=== PATIENT | male | born 1990 | race Caucasian/White ===

== ENCOUNTER 2017-02-02 11:51 | Emergency (ER) | payer MEDICAID ==
--- NOTE | 2017-02-02 12:16 | ER Document Report ---
ED Medical Screen (RME) - General Chief Complaint: Headache Stated Complaint: HEADACHE Time Seen by Provider: 02/02/17 12:08 Mode of Arrival: Ambulatory Information source: Patient Notes: This 26-year-old male patient comes emergency room complaining of a complex set of symptoms which involves getting dizzy, feeling hot, sweating, and off- balance. He would lose feeling in his hands and feet, it would move up the arms and legs and then he will black out for up to 5 minutes. When he wakes up his arms and legs do not want to move. He has had 2 of these episodes in the past 2 weeks, both occurred while sitting down. One was while riding in a truck on the way back to his work area, the other occurred today while sitting down outdoors with friends "just chilling". He has had headaches in the back of his head and neck for the last 2 weeks. He reports a similar problem when he was younger, and had extensive workups and testing when he was 18 years old. No etiology was found for the symptoms, and they just went away. Brief exam shows the patient is quite tender in the posterior cervical muscles and where the muscles insert on the nuchal ridge, right being much more tender than the left. I have greeted and performed a rapid initial assessment of this patient. A comprehensive ED assessment and evaluation of the patient, analysis of test results and completion of the medical decision making process will be conducted by additional ED providers. TRAVEL OUTSIDE OF THE [place] IN LAST 30 DAYS: No - Related Data Allergies/Adverse Reactions: ibuprofen Adverse Reaction (Verified 02/02/17 12:05) Past Medical History Renal/ Medical History: Denies: Hx Peritoneal Dialysis Past Surgical History: Reports: Hx Tonsillectomy - Immunizations Immunizations up to date: Yes Hx Diphtheria, Pertussis, Tetanus Vaccination: No Physical Exam - Vital signs Vitals: Temp Pulse Resp BP Pulse Ox 98.5 F 87 12 130/77 H 98 02/02/17 11:53 02/02/17 11:53 02/02/17 11:53 02/02/17 11:53 02/02/17 11:53 Course - Vital Signs Vital signs: Temp Pulse Resp BP Pulse Ox 98.5 F 87 12 130/77 H 98 02/02/17 11:53 02/02/17 11:53 02/02/17 11:53 02/02/17 11:53 02/02/17 11:53
[2017-02-02 13:43] LABS: ABSOLUTE BASOPHILS # (AUTO) 0.1 10^3/uL (0.0-0.2); ABSOLUTE EOSINOPHILS # (AUTO) 0.1 10^3/uL (0.0-0.6); ABSOLUTE NEUT (AUTO) 9.9 10^3/uL (1.7-8.2); BASOPHILS % (AUTO) 0.5 % (0-2); EOSINOPHILS % (AUTO) 0.6 % (0-6); HEMATOCRIT 36.8 % (37.9-51.0); HGB HCT DIFFERENCE -0.8; LYMPHOCYTES % (AUTO) 8.3 % (13-45); MEAN CORPUSCULAR HEMOGLOBIN 21.2 pg (27.0-33.4); MEAN CORPUSCULAR HGB CONC 32.5 g/dL (32.0-36.0); MEAN CORPUSCULAR VOLUME 65 fl (80-97); MONOCYTES % (AUTO) 8.1 % (3-13); RED BLOOD COUNT 5.66 10^6/uL (4.35-5.55); RED CELL DISTRIBUTION WIDTH 15.6 % (11.5-14.0); SEGMENTED NEUTROPHILS % (AUTO) 82.5 % (42-78)
--- NOTE | 2017-02-02 13:49 | ER Document Report ---
ED General - General Chief Complaint: Headache Stated Complaint: HEADACHE Time Seen by Provider: 02/02/17 12:08 Mode of Arrival: Ambulatory Information source: Patient Notes: This is a 26 year old male who presents for evaluation of headache and syncope. Patient reports posterior head and neck pain for the past 2 weeks, and overall just not feeling well, with subjective fevers and chills. About 10 days ago he states he had a syncopal episode. He was the passenger in a vehicle at the time, and states that he suddenly felt hot, got diaphoretic and nauseated, had ringing in his ears and numbness to bilateral hands and feet. He leaned forward onto the dash and "passed out" for a few minutes. No seizure activity reported, but he did have urinary incontinence. Awoke and friend drove him home. Today, he had a similar episode at a friend's house. He was seated outside, just "hanging out", and began feeling hot and nauseated. He could tell that he may pass out, so he laid on the ground. He thinks he may have passed out for a few seconds. No urinary incontinence this time, no seizure activity. His family drove him straight to the ER. Of note, he was noted to vomit here in the ER during IV placement. Currently he states he is feeling better. Pt traveled to [place] last month for work. He has not recently been out of the country. Denies rashes or tick bites. No known sick contacts. Of note, patient states he had an extensive workup for syncope when he was a teenager, around age 18, as he was having similar spells then. He states he had CT, MRI, sleep studies and no etiology was found. TRAVEL OUTSIDE OF THE [place] IN LAST 30 DAYS: No - Related Data Allergies/Adverse Reactions: ibuprofen Adverse Reaction (Verified 02/02/17 12:05) Past Medical History - General Information source: Patient - Social History Smoking Status: Current Every Day Smoker Family History: None Patient has suicidal ideation: No Patient has homicidal ideation: No Renal/ Medical History: Denies: Hx Peritoneal Dialysis Past Surgical History: Reports: Hx Tonsillectomy - Immunizations Immunizations up to date: Yes Hx Diphtheria, Pertussis, Tetanus Vaccination: No Review of Systems - Review of Systems Constitutional: No symptoms reported EENT: No symptoms reported Cardiovascular: See HPI. denies: Chest pain, Palpitations, Heart racing, Orthopnea, Dyspnea, Edema Respiratory: No symptoms reported. denies: Cough, Hurts to breathe, Short of breath Gastrointestinal: See HPI. denies: Abdominal pain Musculoskeletal: No symptoms reported Skin: No symptoms reported Hematologic/Lymphatic: No symptoms reported Neurological/Psychological: See HPI, Headaches Physical Exam - Vital signs Vitals: Temp Pulse Resp BP Pulse Ox 98.5 F 87 12 130/77 H 98 02/02/17 11:53 02/02/17 11:53 02/02/17 11:53 02/02/17 11:53 02/02/17 11:53 - Notes Notes: PHYSICAL EXAMINATION: GENERAL: Well-appearing, alert and conversant, well-nourished and in no acute distress. HEAD: Atraumatic, normocephalic. EYES: Pupils equal round and reactive to light, extraocular movements intact, sclera anicteric, conjunctiva are normal. ENT: nares patent, oropharynx clear without exudates. Moist mucous membranes. NECK: Normal range of motion, supple without lymphadenopathy LUNGS: Breath sounds clear to auscultation bilaterally and equal. No wheezes rales or rhonchi. HEART: Regular rate and rhythm without murmurs ABDOMEN: Soft, nontender, normoactive bowel sounds. No guarding, no rebound. No masses appreciated. EXTREMITIES: Normal range of motion, no pitting or edema. No cyanosis. NEUROLOGICAL: Cranial nerves grossly intact. Normal speech. Motor strength +5/ 5 bilateral upper and lower extremities, sensation intact. PSYCH: Normal mood, normal affect. SKIN: Warm, Dry, normal turgor, no rashes or lesions noted. Course - Re-evaluation Re-evalutation: 02/02/17 15:39 Pt has remained hemodynamically stable in the ER. His workup has been reassuring, to include negative CT head with and without contrast and reassuring labwork. At this point I suspect vasovagal syncope, as patient always has a prodrome of nausea and lightheadedness, no chest pain or palpitations, and pateint appears to have sensitive vagal response given his reaction to IV stick here in ER today. Seizure episodes also a possibility, but no tonic clonic symptoms witnessed and pt has warning prior to episodes. Will provide neurology followup information as well as encourage pt to follow up with a PCP or the community care clinic. Pt encouraged to rest in air conditioned environment and drink plenty of fluids. Return precautions discussed. Patient and family comfortable with plan. - Vital Signs Vital signs: Temp Pulse Resp BP Pulse Ox 98.5 F 62 12 125/63 99 02/02/17 11:53 02/02/17 13:41 02/02/17 14:13 02/02/17 14:13 02/02/17 14:13 - Laboratory Result Diagrams: 02/02/17 13:20 02/02/17 13:20 Laboratory results interpreted by me: 02/02/17 02/02/17 02/02/17 13:20 13:20 14:11 WBC 12.0 H RBC 5.66 H Hgb 12.0 L Hct 36.8 L MCV 65 L MCH 21.2 L RDW 15.6 H Seg Neutrophils % 82.5 H Lymphocytes % 8.3 L Absolute Neutrophils 9.9 H Total Bilirubin 1.5 H Urine Protein 30 H - Diagnostic Test Radiology reviewed: Reports reviewed - CT head with and without contrast: no acute abnormality Discharge - Discharge Clinical Impression: Syncope Qualifiers: Syncope type: unspecified Qualified Code(s): R55 - Syncope and collapse Cephalgia Qualifiers: Headache type: unspecified Headache chronicity pattern: unspecified pattern Intractability: not intractable Qualified Code(s): R51 - Headache Condition: Stable Disposition: HOME, SELF-CARE Additional Instructions: Syncopal Episode Syncope (fainting or near-fainting) can occur from many different health problems. Or it can be a simple fainting spell requiring no treatment. It is safe for you to go home, but further evaluation will likely be necessary. Your work-up may include tests for internal bleeding, heart disease, medication problems, or near-strokes. Tests are not always required, however, depending on the nature of your problem. The warning signs of an impending faint include: dizziness, lightheadedness , nausea, hot flashes, tingling, and weakness. If this happens, lay down and put your feet up, then wait until all of these symptoms have passed before standing up again. If these episodes become recurrent, or if you develop chest pain, heart palpitations, mental confusion, blurred vision, or headache, then you should call the physician, or go to the emergency room. Vasovagal Symptoms Your symptoms seem to be due to a fall in blood pressure, caused by the interaction of your nervous system with your circulatory system. This can result in abnormally slow pulse rate, faintness, abnormal sensations, low blood pressure, difficulty with vision, or fainting (syncope). Vasovagal symptoms may be brought on by emotional distress, pain, dehydration, bleeding, or medication effects. Often, no cause can be identified. Your exam has revealed no signs of a serious problem. Usually, no further tests are required. However, if further workup has been recommended it's important that you follow up as instructed. Should you feel lightheaded or "about to faint," you should sit or lie down as quickly as possible. The episode will usually pass. Recurring symptoms will require further evaluation to determine the cause. Call the physician if you develop severe prolonged dizziness, headache, chest pain, shortness of breath, or other new symptoms. As instructed, rest in a cool, airconditioned environment next 24 hours. Drink plenty of fluids. Follow up with PCP and neurology as instructed. Return to the ER for fever greater than 100.4, chest pain, irregular heart beat or palpitations, or any worsening symptoms or concerns. Forms: Return to Work Referrals: MAXIMUS BROWNLEE MD [ACTIVE STAFF] - Follow up in 3-5 days
[2017-02-02 14:01] LABS: ALANINE AMINOTRANSFERASE 32 U/L (21-72); ALBUMIN 4.8 g/dL (3.5-5.0); ALKALINE PHOSPHATASE 67 U/L (38-126); ANION GAP 14 (5-19); ASPARTATE AMINO TRANSFERASE 24 U/L (17-59); BILIRUBIN,DIRECT 0.2 mg/dL (0.0-0.4); BILIRUBIN,TOTAL 1.5 mg/dL (0.2-1.3); BLOOD UREA NITROGEN 17 mg/dL (7-20); CALCIUM 9.6 mg/dL (8.4-10.2); CARBON DIOXIDE 25 mmol/L (22-30); CHLORIDE 100 mmol/L (98-107); CREATININE RESULT 0.81 mg/dL (0.52-1.25); GLUCOSE 89 mg/dL (75-110); POTASSIUM 4.7 mmol/L (3.6-5.0); SODIUM 138.9 mmol/L (137-145); TOTAL PROTEIN 7.5 g/dL (6.3-8.2)
[2017-02-02 14:13] LABS: CREATINE KINASE MB 0.48 ng/mL (<4.55)
[2017-02-02 14:17] LABS: TROPONIN I < 0.012 ng/mL
--- NOTE | 2017-02-02 14:17 | RADIOLOGY REPORT (SQ) ---
EXAM DESCRIPTION: CT HEAD COMBO COMPLETED DATE/TIME: 02/02/2017 2:07 pm REASON FOR STUDY: headache, vomiting, syncope COMPARISON: None. TECHNIQUE: Axial images acquired through the brain without and with intravenous contrast. Images re viewed with bone, brain and subdural windows. Images stored on PACS. All CT scanners at this facility use dose modulation, iterative reconstruction, and/or weight based d osing when appropriate to reduce radiation dose to as low as reasonably achievable (ALARA). [facility]: Dose Right [facility]: CareDose [facility]: Dose Right [facility]: Teradose 4D [facility]: [employer] CONTRAST TYPE AND DOSE: 50mL Isovue 370- low osmolar. RENAL FUNCTION: None required. The patient is less than 50 years old. RADIATION DOSE: 129.22 mGy. LIMITATIONS: None. FINDINGS: VENTRICLES: Normal size and contour. CEREBRUM: No masses. No hemorrhage. No midline shift. Normal winston/white matter differentiation. No ev idence for acute infarction. No enhancing lesions. CEREBELLUM: No masses. No hemorrhage. No alteration of density. No evidence for acute infarction. No enhancing lesions. EXTRA-AXIAL SPACES: No fluid collections. No enhancing lesions. ORBITS AND GLOBE: No intra- or extraconal masses. Normal contour of globe without masses. CALVARIUM: No fracture. PARANASAL SINUSES: No fluid or mucosal thickening. SOFT TISSUES: No mass or hematoma. OTHER: No other significant finding. IMPRESSION: NORMAL BRAIN CT WITHOUT AND WITH CONTRAST. TECHNICAL DOCUMENTATION: JOB ID: [id number] Quality ID # [id number]: Final reports with documentation of one or more dose reduction techniques (e.g., Au tomated exposure control, adjustment of the mA and/or kV according to patient size, use of iterative reconstruction technique) 2010 [employer]- All Rights Reserved
[2017-02-02 14:51] LABS: APPEARANCE,URINE SLIGHTLY-CLOUDY; BILIRUBIN,URINE NEGATIVE (NEGATIVE); GLUCOSE, URINE NEGATIVE (NEGATIVE); KETONES,URINE NEGATIVE (NEGATIVE); LEUKOCYTE ESTERASE,URINE NEGATIVE (NEGATIVE); NITRITE,URINE NEGATIVE (NEGATIVE); PROTEIN,URINE 30 mg/dL (NEGATIVE); UROBILINOGEN,URINE NEGATIVE mg/dL (<2.0)
[2017-02-02] MEDS ORDERED: NORMAL SALINE 1000 ML 1,000 ML IV ONE (14:52)
[2017-02-02 15:13] LABS: URINE BARBITURATES SCREEN NEGATIVE; URINE METHADONE SCREEN NEGATIVE; URINE OPIATES LOW NEGATIVE; URINE PHENCYCLIDINE SCREEN NEGATIVE
[2017-02-02 16:17] VITALS: BP 117/63
--- NOTE | 2017-02-02 17:27 | EKG REPORT ---
SEVERITY:- ABNORMAL ECG - SINUS RHYTHM RIGHT AXIS DEVIATION ABNORMAL Q SUGGESTS ANTERIOR INFARCT : Confirmed by: Apolinar Che MD 02-Feb-2017 17:27:28
== END 2017-02-02 16:18 | disposition home or self-care (01) ==
LOC: ER 11:51
DX: R51 Headache (principal); R55 Syncope and collapse; R68.83 Chills (without fever); R11.10 Vomiting, unspecified; F17.200 Nicotine dependence, unspecified, uncomplicated
CPT/HCPCS: 93005; 99284; 96360; 36415; 87040; 82553; 82550; 84443; 85025; 80053; 81001; 84484; 80307; 70470; 93010; J7030